=== PATIENT | male | born 1975 | race Two or more races ===

== ENCOUNTER 2022-05-26 08:51 | Outpatient (CLI) | payer OTHER | END 2022-05-26 23:59 | disposition home or self-care (01) | LOC: LAB 08:51 | PROVIDERS: ATTEND Specialist | DX: Z01.812 Encounter for preprocedural laboratory examination (principal); Z20.822 Contact with and (suspected) exposure to COVID-19 | CPT/HCPCS: U0003; C9803 ==

== ENCOUNTER → 2022-06-01 | Day surgery (SDC) | payer OTHER ==
[~2022-06-01] VITALS: Ht 182.9 cm; Wt 99.8 kg
[~2022-06-01] MED LIST: ANESTHESIA TRAY IN PYXIS 1 EA TRAY MC ONE; BUPIVACAINE 0.25% 75 MG/30 ML VIAL ONE; BUPIVACAINE MPF 0.75% 30 ML VIAL ONE; EPINEPHRINE (1:1000) 1 MG/ML AMPUL ONE; FENTANYL PF 100MCG/2ML AMPUL ONE; HYDROCODONE/APAP 5/325MG TABLET PO PRN; MIDAZOLAM HCL 2 MG/2ML VIAL ONE; methylPREDNISolone ACETATE 80 MG/ML VIAL ONE
--- NOTE | 2022-06-01 06:00 | NUR ---
RN NOTE PT ARRIVED TO UNIT PT A/OX4 ABLE TO MAKE NEED KNOWN, PT CHANGED IN TO GOWN ORIENTED TO UNIT AND ROOM. IV ACCESS ESTABLISHED L HAND 18G TOLERATED WELL. PT CONSENTS SIGNED CHECKLIST DONE. MRSA SWAB DONE. CALL LIGHT PROVIDED. BILATERAL SIDE RAILS UP FOR SAFETY.
--- NOTE | 2022-06-01 06:25 | NUR ---
RN NOTE PT TAKEN DOWN FOR SURGERY.
[2022-06-01 06:41] VITALS: BP 148/82
--- NOTE | 2022-06-01 07:00 | NUR ---
RN NOTE PATIENT ENDORSED BY CRUZITO GARRETT, CURRENTLY IN SURGERY.
[2022-06-01 09:30] VITALS: BP 141/90
--- NOTE | 2022-06-01 09:35 | NUR ---
RN NOTE PATIENT BACK FROM SURGERY VIA BED, ACCOMPANIED BY CRUZITO VELEZ. PATIENT IS AWAKE, A/O X4, VERBALLY RESPONSIVE AND ABLE TO MAKE NEEDS KNOWN. NOTED WITH WITH SLING ON RIGHT SHOULDER, WITH DRESSING C/D/I. CIRCULATION ON R FINGERS WNL. STILL WITH C/O NUMBNESS. VITAL SIGNS TAKEN, STABLE AND RECORDED. WILL CONTINUE TO MONITOR PATIENT. PER DR. KUMAR, PATIENT MAY D/C HOME WHEN COMFORTABLE.
[2022-06-01 09:45] VITALS: BP 133/87
[2022-06-01 10:00] VITALS: BP 127/90
[2022-06-01 10:15] VITALS: BP 142/92
[2022-06-01 10:30] VITALS: BP 134/91
--- NOTE | 2022-06-01 13:13 | NUR ---
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 DISCHARGE INSTRUCTIONS PROVIDED WITH VERBALIZATION OF UNDERSTANDING. R SHOULDER SURGICAL SITE REMAINS WITH DRESSING C/D AND SLING. PATIENT TO FOLLOW-UP WITH DR. KUMAR IN 10 DAYS. JONE LAN ACCOMPANIED PATIENT TO THE LOBBY VIA W/C. PATIENT PICKED UP BY BROTHER IN LAW VIA PRIVATE CAR.
== END | disposition home or self-care (01) ==
LOC: DS 05:53 → UNDOADMIN 05:54 → MED 05:54 → UNDODISIN 13:55
PROVIDERS: ATTEND Specialist
DX: M75.41 Impingement syndrome of right shoulder (principal); Z98.890 Other specified postprocedural states; I10 Essential (primary) hypertension; Z79.899 Other long term (current) drug therapy
CPT/HCPCS: 29827; 29826; 87081; J0690; J1100; J2704; J0171; J3010; J3490 ×3; J2405; C1713 ×2; J7030; J2250; A4217; A4565; G0378; J1040